=== PATIENT | male | born 1935 | race Caucasian/White ===

== ENCOUNTER 2017-02-15 14:17 | Inpatient (IN) | payer MEDICARE, OTHER ==
[~2017-02-15 14:17] MED LIST: ACCUPRIL20 MG PO; COREG12.5 MG PO; HYDROCHLOROTHIA25 MG PO; PACERONE200 MG PO
[2017-02-15 14:46] LABS: BASOPHILS 0.2 % (0-2); EOSINOPHILS 2.4 % (0-7); HEMATOCRIT 38.4 % (42.0-54.0); HEMOGLOBIN 13.1 g/dL (13.5-17.5); IMMATURE GRANULOCYTES 0.3 % (0-5); LYMPHOCYTES 13.7 % (15-50); MCHC 34.1 g/dL (31.0-37.0); MEAN PLATELET VOLUME 9.5 fL (7.4-10.4); MONOCYTES 5.7 % (2-11); NEUTROPHILS 77.7 % (40-80); PLATELET COUNT 190 10x3/uL (130-400); RBC 4.22 10x6/uL (4.20-6.10); WBC 9.5 10x3/uL (4.8-10.8)
[2017-02-15 15:15] LABS: ALBUMIN 3.8 g/dL (3.4-5.0); ALKALINE PHOSPHATASE 73 U/L (46-116); ALT (SGPT) 26 U/L (10-68); BILIRUBIN - TOTAL 0.44 mg/dL (0.2-1.3); CALC OSMOLALITY 282 mosm/kg (275-300); CALCIUM 9.8 mg/dL (8.5-10.1); CARBON DIOXIDE 29.4 mmol/L (21.0-32.0); CHLORIDE - SERUM 101 mmol/L (98-107); CREATININE - SERUM 1.4 mg/dL (0.6-1.3); GLUCOSE 150 mg/dL (74-106); POTASSIUM - SERUM 4.4 mmol/L (3.5-5.1); PROTEIN - SERUM 7.1 g/dL (6.4-8.2); SODIUM 139 mmol/L (136-145); UREA NITROGEN 18 mg/dL (7-18); eGFR NON AFRICAN AMERICAN 52 mL/min (90-120)
[2017-02-15 15:25] LABS: TROPONIN-I < 0.017 ng/mL (0.000-0.060)
[2017-02-15 16:18] LABS: INR 0.96 (0.85-1.17); PROTIME 12.7 SECONDS (11.6-15.0)
--- NOTE | 2017-02-15 19:42 | NUR ---
PATIENT IS ALERT, ARRIVED FROM THE ER VIA WHEELCHAIR, IV NOTED IN LEFT FOREARM SALINE LOCKED. SPOUSE IS AT BEDSIDE. ORIENTED TO ROOM AND CALL LIGHT. CALL LIGHT IN REACH.
[2017-02-15 20:00] VITALS: BP 125/72
--- NOTE | 2017-02-15 23:13 | NUR ---
PATIENT IS ALERT IN BED WATCHING TV, DENIES ANY PAIN OF NEEDS AT THIS TIME. CALL LIGHT IN REACH.
--- NOTE | 2017-02-15 23:47 | NUR ---
PATIENT HAS AN ABRASION ON LEFT FOREARM, STATES PAIN AT A 6 AND WANTS TYLENOL. I CALLED DR ONEAL AND HE GAVE A PHONE ORDER FOR TYLENOL 650 MG Q 4 HOURS PRN.
[2017-02-16] VITALS: BP 133/81
[2017-02-16 02:17] VITALS: BMI 29.1
[2017-02-16 04:00] VITALS: BP 118/68
--- NOTE | 2017-02-16 04:24 | NUR ---
CONSULT FOR DR OCONNELL , DR OCONNELL WAS NOTIFIED.
[2017-02-16 05:37] LABS: BASOPHILS 0.2 % (0-2); EOSINOPHILS 3.8 % (0-7); HEMATOCRIT 37.6 % (42.0-54.0); HEMOGLOBIN 12.6 g/dL (13.5-17.5); IMMATURE GRANULOCYTES 0.2 % (0-5); MCH 30.3 pg (26.0-34.0); MCHC 33.5 g/dL (31.0-37.0); MCV 90.4 fL (80.0-100.0); MEAN PLATELET VOLUME 9.7 fL (7.4-10.4); MONOCYTES 8.5 % (2-11); NEUTROPHILS 63.3 % (40-80); PLATELET COUNT 183 10x3/uL (130-400); RBC 4.16 10x6/uL (4.20-6.10); RDW 13.1 % (11.5-14.5)
[2017-02-16 05:45] LABS: WBC 6.3 10x3/uL (4.8-10.8)
[2017-02-16 05:59] LABS: ALBUMIN 3.3 g/dL (3.4-5.0); ANION GAP 13.3 mmol/L (8-16); BILIRUBIN - TOTAL 0.5 mg/dL (0.2-1.3); CALCIUM 9.6 mg/dL (8.5-10.1); CHOL - HDL RATIO 4.4 ratio (2.3-4.9); CREATININE - SERUM 1.4 mg/dL (0.6-1.3); LDL-HDL RATIO 2.4 ratio (1.5-3.5); POTASSIUM - SERUM 4.3 mmol/L (3.5-5.1); PROTEIN - SERUM 6.5 g/dL (6.4-8.2); THYROID STIMULATING HORMONE 3.42 uIU/mL (0.36-3.74)
--- NOTE | 2017-02-16 07:43 | NUR ---
AWAKE AND ALERT. ORIENTED X3. NO C/O AT THIS TIME. LUNGS ARE CLEAR BILATERALLY, NO COUGH NOTED. SKIN IS INTACT WITHOUT REDNESS EXCEPT OLD ABRASIONS TO LEFT ELBOW. SL TO LEFT FOREARM IS PATENT WITHOUT REDNESS AT INSERTION SITE. DENIES NEEDS. SITTING UP IN CHAIR AT BEDSIDE. IN ROOM.
[2017-02-16 08:11] VITALS: BP 143/80
[2017-02-16 08:50] LABS: HEMOGLOBIN A1C 8.1 % (4.8-6.0)
--- NOTE | 2017-02-16 10:23 | NUR ---
ATE ALL OF BREAKFAST. TEGADERM APPLIED TO LEFT ELBOW AFTER CLEANED AREA WITH NS. AMBULATED IN HALLWAY WITH PT.
--- NOTE | 2017-02-16 12:30 | NUR ---
SITTING UP IN CHAIR AT BEDSIDE EATING LUNCH . NO C/O VOICED. AMBULATED IN HALLWAY WITH USING RW. GAIT STEADY.
[2017-02-16 12:35] VITALS: BP 122/80
[2017-02-16 14:11] LABS: APPEARANCE CLEAR (CLEAR); BILIRUBIN NEGATIVE (NEGATIVE); COLOR YELLOW (YELLOW); GLUCOSE NEGATIVE (NEGATIVE); KETONE NEGATIVE (NEGATIVE); NITRITE NEGATIVE (NEGATIVE); PROTEIN NEGATIVE (NEGATIVE); UROBILINOGEN NORMAL (NORMAL)
--- NOTE | 2017-02-16 16:07 | NUR ---
Patient Name: JOLYNN Meredith BLENDING TECHNICIAN Admission Status: ER Accout number: [id number] Admission Date: 02-15-2017 : 1935 Admission Diagnosis: Attending: EVANGELINA MORENO Current LOS: 1 Anticipated DC Date: Planned Disposition: Home Primary Insurance: MEDICARE A & B Discharge Planning Comments: CM met with patient to assess discharge planning needs. Patient lives independently with his Edel, who will be the one to take him home at discharge. Patient has 5 levels in his home, but only uses 2. Patient will need a walker at discharge and would like to do outpatient pt in [place]. CM will set both up . CM will continue to follow and assist with discharge planning needs. PCP: Elvis [place] [facility] () [phone] Short Haul Driver: Loraine Damon * Is the patient Alert and Oriented? Yes 0 * How many steps to enter\exit or inside your home? 4 0 * PCP ELVIS 0 * [facility] * Preadmission Environment Home with Family 0 * ADLs Independent 0 * Equipment None 0 * List name and contact numbers for known caregivers / representatives who currently or will assist patient after discharge: EDEL () [phone] * Community resources currently utilized None 0 * Additional services required to return to the preadmission environment? Yes 0 * Can the patient safely return to the preadmission environment? Yes 0 * Has this patient been hospitalized within the prior 30 days at any hospital? No 0 Grand Total: 0
[2017-02-16 17:27] VITALS: BP 120/78
--- NOTE | 2017-02-16 18:30 | NUR ---
ATE ALL OF SUPPER. FAMILY AT BEDSIDE. DENIES NEEDS. NO CHANGES NOTED.
[2017-02-16 20:00] VITALS: BP 125/67
--- NOTE | 2017-02-16 23:48 | NUR ---
PATIENT IS SLEEPING IN BED, SPOUSE IS AT BEDSIDE. CALL LIGHT IS IN REACH.
[2017-02-17 04:00] VITALS: BP 115/72
--- NOTE | 2017-02-17 06:40 | NUR ---
PATIENT IS UP IN THE BUTTS WALKING WITH HIS WALKER, WALKING WELL. SPOUSE IS WALKING WITH HIM.
--- NOTE | 2017-02-17 07:15 | NUR ---
RECIEVED REPORT ON PATIENT, PATIENT IS ALERT AND ORIENTED, SITTING IN CHAIR. PATIENT HAS A L FA IV THAT IS SL AT THIS TIME. PATIENT IS ON MONITOR, RUNNING PACED WITH AN UNDERLINE OF AFIB WITH A RATE OF 61. PATIENT DENIES ANY NEEDS, WANTING TO GO HOME. WILL TALK WITH DR MORENO. CPOC
[2017-02-17 08:55] VITALS: BP 138/72
--- NOTE | 2017-02-17 09:45 | NUR ---
MORNING MEDICATION GIVEN. PATIENT AMBULATING AROUND ROOM. DENIES ANY NEEDS. CPOC
[2017-02-17] MEDS ORDERED: PLAVIX75 MG PO (10:25)
[2017-02-17] MEDS ORDERED: LIPITOR20 MG PO (10:25)
[2017-02-17] MEDS ORDERED: ASPIRIN325 MG PO (10:26)
[2017-02-17] MEDS ORDERED: PROTONIX40 MG PO (10:26)
--- NOTE | 2017-02-17 11:00 | NUR ---
PATIENT AMBULATING HALLWAY WITH WALKER AND . PATIENT DENIES ANY NEEDS. CPOC
--- NOTE | 2017-02-17 11:02 | NUR ---
PATIENT IS DISCHARGING TODAY HOME AND WILL DRIVE. WALKER ORDERED AND WILL BE DELIVERED TO THE HOSPITAL. PATIENT WAS SET UP WITH PT AT [facility] AND HIS FIRST APPOINTMENT SCHEDULED FOR TuesdayFeb @ 10:30 AM. CM WILL CONTINUE TO FOLLOW AND ASSIST NEEDED
--- NOTE | 2017-02-17 12:12 | NUR ---
PATIENT SIGNED DC PAPERWORK, DC INSTRUCTIONS GIVEN. PATIENT DENIES ANY NEEDS. WAITING ON WALKER TO BE DELIVERED. THEN PATIENT WILL BE READY FOR DC
--- NOTE | 2017-02-17 12:45 | NUR ---
PT WALKER DELIVERED AND DISCHARGED WITH BELONGINGS PER WC
--- NOTE | 2017-03-02 10:07 | EC ---
PATIENT:JOLYNN MENDEZ DATE OF SERVICE: 02/16/17 SEX: M MEDICAL RECORD: [id number] DATE OF : [birth year] LOCATION:[facility] AGE OF PATIENT: 81 ADMISSION DATE: 02/16/17 REFERRING PHYSICIAN: INTERPRETING PHYSICIAN: WINTER ROSEN MD ECHOCARDIOGRAM REPORT ECHO CHARGES 4 ECHO COMPLETE CLINICAL DIAGNOSIS: TIA ECHOCARDIOGRAPHIC MEASUREMENTS (adult normal given) AC root (d.<3.7cm) 4.2 cm LV Septum d (<1.2 cm> 1.6 cm Valve Excursion 0.7 cm LV Septum (systole) 2.1 cm Left Atria (s.<4.0cm> 3.6 cm LVPW d(<1.2cm) 1.6 cm RV (d.<2.3cm) 2.9 cm LVPW (sytole) 2.3 cm LV diastole(<5.6CM) 5.8 cm MV E-F(>70mm/sec) cm LV systole 3.7 cm LVOT Diameter 2.1 cm MV exc.(>10mm) cm Est.ejection fraction (50-75%) % Pericardial Effusion N DOPPLER: LVIT cm/sec A cm/sec E 86.0 cm/sec LA cm/sec RVSP 33.2 mmHg LVOT 74.0 cm/sec AOP1/2T m/s Asc. Ao 229 cm/sec RVOT 50.0 cm/sec RA cm/sec PA 88.0 cm/sec AV Gradient Peak 21.0 mmHg AV Mean 11.4 mmHg AV Area 1.3 cm MV Gradient Peak 7.0 mmHg MV Mean 2.0 mmHg MV Area cm COMMENTS: [place]y Worker: Ines DEWITTOE Barge Pilot: Aparna Rosen TAPE# PACS DATE OF SERVICE: 02/16/2017 PROCEDURE: Transthoracic echocardiogram. FINDINGS: 1. 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 2. The inflow characteristics across the left ventricle could not be calculated because of the presence of atrial fibrillation. The overall ejection fraction appears preserved at 55%. 3. The mitral valve has mild to moderate mitral regurgitation. ECHOCARDIOGRAM REPORT [id number] JOLYNN MENDEZ 4. The aortic valve is thickened. Unfortunately, it is not well visualized in planimetry. There is suggestion of at least mild aortic stenosis, although the peak gradients gathered did not show a good aortic envelope. 5. Tricuspid valve has mild tricuspid regurgitation, RVSP of 33 mmHg. 6. The right atrium is mildly enlarged. 7. The right ventricle is mildly enlarged. CONCLUSIONS: The patient has what appears to be hypertensive heart disease with preserved LV systolic function, ejection fraction 55%. The patient has thickened aortic valve and at least mild aortic stenosis and mild aortic regurgitation. TRANSINT:[id number] Voice Confirmation ID: [id number] DOCUMENT ID: [id number] 02/28/2017 Edited to correct date of service, dm. WINTER ROSEN MD at 1007 CC: [id number] DICTATION DATE: 02/17/17 0748 DISH STACKER: 02/17/17 0804 DIS IN 02/17/17 [facility] [address] [place] [address]
== END 2017-02-17 13:21 | disposition home or self-care (01) | DRG 65 ==
LOC: D.ER 14:17 → D.MS 18:00 → OBSVTIME 18:00 → D.MS 18:00 → D.SDCHOLD 02-16 17:11 → D.MS 02-16 17:13
PROVIDERS: Emergency Medicine; Nurse Practitioner Family; ADMIT Family Medicine
DX: I63.9 Cerebral infarction, unspecified (principal); G81.94 Hemiplegia, unspecified affecting left nondominant side; R47.81 Slurred speech; E78.5 Hyperlipidemia, unspecified; R42 Dizziness and giddiness; S41.112A Laceration without foreign body of left upper arm, initial encounter; W18.30XA Fall on same level, unspecified, initial encounter; I10 Essential (primary) hypertension; Z74.09 Other reduced mobility; Z95.0 Presence of cardiac pacemaker

== ENCOUNTER → 2019-05-16 10:01 | Outpatient (CLI) | payer MEDICARE, BC ==
[~2019-05-16 10:01] MED LIST changes: +ASPIRIN325 MG PO; +LIPITOR20 MG PO; +PLAVIX75 MG PO; +PROTONIX40 MG PO
== END | disposition home or self-care (01) ==
LOC: D.HCCECHO 10:01
PROVIDERS: ATTEND Internal Medicine Interventional Cardiology
DX: I10 Essential (primary) hypertension (principal)